=== PATIENT | male | born 1935 | race Caucasian/White ===

== ENCOUNTER 2017-12-31 17:40 | Inpatient (IN) | payer OTHER, BC ==
[~2017-12-31] VITALS: Ht 180.3 cm; Wt 106.6 kg
[2017-12-31 17:45] VITALS: Ht 180.3 cm; Wt 106.6 kg
[2017-12-31 18:27] LABS: CARBON DIOXIDE 26.3 mmol/L (21-32); CHLORIDE SERUM 99 mmol/L (98-107); CREATININE SERUM 1.7 mg/dL (0.7-1.3); GLUCOSE SERUM 253 mg/dL (74-106); POTASSIUM SERUM 4.7 mmol/L (3.5-5.1); SODIUM SERUM 131 mmol/L (136-145)
[2017-12-31 18:32] LABS: ALBUMIN 3.6 g/dL (3.4-5.0); ALKALINE PHOSPHATASE 110 U/L (46-116); ALT/SGPT 24 U/L (16-63); AST/SGOT 16 U/L (15-37); BILIRUBIN TOTAL 0.3 mg/dL (0.20-1.00); TOTAL PROTEIN, SERUM 7.2 g/dL (6.4-8.2)
[2017-12-31 18:57] LABS: BASOPHIL % 0.5 % (0-2); PLATELET COUNT 204 x10^3mcL (130-400); RED CELL DISTRIBUTION WIDTH 13.6 % (11.5-14.5)
[2017-12-31 20:29] LABS: PHOSPHOROUS 3.5 mg/dL (2.5-4.9)
[2017-12-31 20:37] LABS: FREE T4 0.89 ng/dL (0.76-1.46); FREE THYROXINE INDEX 2.1 ug/dL (1.4-4.5); T3 TOTAL 0.98 ng/mL; T4(THYROXINE) 5.4 ug/dL (4.7-13.3)
[2017-12-31] MEDS ORDERED: HUMALOG MIX 75/10 ML SC (20:38)
[2017-12-31 20:46] LABS: CHOLESTEROL/HDL RATIO 7.4
[2017-12-31 20:47] VITALS: BP 150/76
[2018-01-01 01:53] LABS: microscopic required? YES; urine erythrocyte NEGATIVE (NEGATIVE)
[2018-01-01 06:22] VITALS: BP 126/58
[2018-01-01 07:10] LABS: CARBON DIOXIDE 27.8 mmol/L (21-32); CHLORIDE SERUM 103 mmol/L (98-107); CREATININE SERUM 1.3 mg/dL (0.7-1.3); GLUCOSE SERUM 65 mg/dL (74-106); MAGNESIUM 2.1 mg/dL (1.8-2.4); PHOSPHOROUS 3.3 mg/dL (2.5-4.9); POTASSIUM SERUM 4.7 mmol/L (3.5-5.1); SODIUM SERUM 137 mmol/L (136-145)
[2018-01-01 07:52] LABS: BASOPHIL % 0.5 % (0-2); PLATELET COUNT 185 x10^3mcL (130-400); RED CELL DISTRIBUTION WIDTH 13.6 % (11.5-14.5)
[2018-01-01 08:38] LABS: AMPHETAMINE QUAL UR NONE DETECTED (NEG <=1000)
[2018-01-01 10:55] VITALS: BP 119/65
[2018-01-01 14:27] VITALS: BP 157/67
[2018-01-01 19:02] VITALS: BP 149/68
[2018-01-01 22:27] VITALS: BP 137/65
[2018-01-02 06:03] VITALS: BP 138/55
[2018-01-02 06:37] LABS: BASOPHIL % 0.5 % (0-2); PLATELET COUNT 182 x10^3mcL (130-400); RED CELL DISTRIBUTION WIDTH 13.5 % (11.5-14.5)
[2018-01-02 07:03] LABS: CALCIUM 8.5 mg/dL (8.5-10.1); CARBON DIOXIDE 24.5 mmol/L (21-32); CHLORIDE SERUM 102 mmol/L (98-107); CREATININE SERUM 1.1 mg/dL (0.7-1.3); GLUCOSE SERUM 120 mg/dL (74-106); MAGNESIUM 1.8 mg/dL (1.8-2.4); PHOSPHOROUS 3.8 mg/dL (2.5-4.9); SODIUM SERUM 134 mmol/L (136-145)
[2018-01-02 09:37] VITALS: BP 141/73
[2018-01-02] MEDS ORDERED: HUMALOG MIX 75/10 ML SC (10:57)
[2018-01-02 11:32] VITALS: BP 141/73
[2018-01-02] MEDS ORDERED: GOOD SENSE ASPI81 M3 PO (11:38)
[2018-01-02] MEDS ORDERED: LOVASTATIN20 MG PO (11:38)
[2018-01-02] MEDS ORDERED: METFORMIN HCL500 MG PO (11:48)
[2018-01-02] MEDS ORDERED: LANTUS SOLOS100 U/M1 SQ (12:08)
== END 2018-01-02 13:24 | disposition home or self-care (01) | DRG 640 ==
LOC: ED 17:40 → DU 19:36 → MU 01-02 06:08
PROVIDERS: Emergency Medicine; Student in an Organized Health Care Education/Training Program
DX: E86.0 Dehydration (principal); N17.0 Acute kidney failure with tubular necrosis; R55 Syncope and collapse; E87.1 Hypo-osmolality and hyponatremia; E87.2 Acidosis; E11.65 Type 2 diabetes mellitus with hyperglycemia; E11.51 Type 2 diabetes mellitus with diabetic peripheral angiopathy without gangrene; E78.5 Hyperlipidemia, unspecified; E66.9 Obesity, unspecified; Z68.29 Body mass index [BMI] 29.0-29.9, adult; Z79.4 Long term (current) use of insulin
CPT/HCPCS: 82962; 83880; 84439; 97110-GP; J7030; Q0092